=== PATIENT | male | born 1980 | race Asian ===

== ENCOUNTER 2017-10-29 20:22 | Emergency (ER) | payer MEDICAID ==
[~2017-10-29] VITALS: Ht 172.7 cm; Wt 132.4 kg
[2017-10-29] MEDS ORDERED: HYDROcodone/APAP 5/325 TABLET ONE (20:54)
[2017-10-29] MEDS ORDERED: HYDROcodone/APAP 5/325 TABLET PO ONE (21:00)
[2017-10-29] MEDS ORDERED: PLEASE ENTER ALLERGIES MC SCH (21:00)
[2017-10-29 21:29] VITALS: BP 160/110
[2017-10-29] MEDS ORDERED: ASPI-496 PO (21:30)
== END 2017-10-29 21:48 | disposition home or self-care (01) ==
LOC: ED 21:35
DX: K02.9 Dental caries, unspecified (principal); I25.2 Old myocardial infarction
CPT/HCPCS: 99283